=== PATIENT | male | born 1930 | race Caucasian/White ===

== ENCOUNTER 2017-10-24 11:50 | Inpatient (IN) | payer MEDICARE, MEDICAID ==
[2017-10-24] MEDS: Levofloxacin/Dextrose 5%-Water 100 ML IV SCH (14:54)
[2017-10-24] MEDS: Sodium Chloride 0.9% 1,000 ML IV SCH (14:54)
[2017-10-24] MEDS: Albuterol/Ipratropium 3.0-0.5 MG/3 ML Neb Soln NEB SCH ×3 (14:54→22:20)
[2017-10-24] MEDS ORDERED: Iopamidol 612 MG/ML 75 ML Bottle IV ONE (15:30)
[2017-10-24] MEDS ORDERED: Sodium Chloride 0.9% 50 ML IV SCH (16:45)
[2017-10-24] MEDS ORDERED: Acetaminophen 325 MG Tab PO PRN (18:08)
[2017-10-24] MEDS ORDERED: fentaNYL 25 MCG/HR Transdermal Patch TRDERM SCH (18:30)
[2017-10-24] MEDS: Carbidopa/Levodopa 25-250 MG Tab PO SCH (19:03)
[2017-10-25] MEDS: Albuterol/Ipratropium 3.0-0.5 MG/3 ML Neb Soln NEB SCH ×2 (05:37→12:38)
[2017-10-25] MEDS: Carbidopa/Levodopa 25-250 MG Tab PO SCH ×4 (05:54→19:36)
[2017-10-25 07:55] LABS: ANION GAP 7.2 mmol/L (5-15); CHLORIDE,CL 105 mmol/L (98-115); SODIUM,NA 141 mmol/L (136-145)
[2017-10-25] MEDS: Polyethylene Glycol 3350 Powder 17 GM Packet PO SCH ×2 (08:49→08:54)
[2017-10-25] MEDS: Aspirin 81 MG Tab.Chew PO SCH ×2 (08:49→08:54)
--- NOTE | 2017-10-25 12:08 | PCM.PN ---
- General Info Date of Service: 10/25/17 Subjective Update: Mr. Starkey is noncommunicative this morning, for which documentation shows is his baseline. Nursing reports no concerns. - Patient Data Vitals - Most Recent: Last Vital Signs Temp 37.2 C 10/25/17 06:57 Pulse 96 10/25/17 06:57 Resp 20 10/25/17 06:57 BP 106/64 10/25/17 06:57 Pulse Ox 94 L 10/25/17 06:57 Weight - Most Recent: 90.1 kg I&O - Last 24 Hours: Intake & Output 10/24/17 10/25/17 10/25/17 22:59 06:59 14:59 Intake Total 197 419 Balance 197 419 Lab Results Last 24 Hours: Laboratory Results - last 24 hr 10/24/17 10/25/17 10/25/17 Range/Units 20:05 07:15 07:15 WBC 12.3 H (5.0-10.0) 10^3/uL RBC 4.04 L (4.50-6.00) 10^6/uL Hgb 13.1 (13.0-17.0) g/dL Hct 38.8 L (40.0-52.0) % MCV 96.2 H D (82.0-92.0) fL MCH 32.3 H (27.0-31.0) pg MCHC 33.6 (32.0-36.0) g/dL RDW 13.7 (11.5-14.5) % Plt Count 120 L (150-300) 10^3/uL MPV 8.1 (7.4-10.4) fL Neut % (Auto) 83.6 H (50.0-70.0) % Lymph % (Auto) 6.3 L (20.0-40.0) % [place] % (Auto) 8.3 H (2.0-8.0) % Eos % (Auto) 1.6 (1.0-3.0) % Baso % (Auto) 0.2 (0.0-1.0) % Neut # (Auto) 10.3 H (2.5-7.0) 10^3/uL Lymph # (Auto) 0.8 L (1.0-4.0) 10^3/uL [place] # (Auto) 1.0 H (0.1-0.8) 10^3/uL Eos # (Auto) 0.2 (0.1-0.3) 10^3/uL Baso # (Auto) 0.0 (0.0-0.1) 10^3/uL Sodium 141 (136-145) mmol/L Potassium 4.0 (3.3-5.3) mmol/L Chloride 105 (98-115) mmol/L Carbon Dioxide 32.8 H (21.0-32.0) mmol/L Anion Gap 7.2 (5-15) mmol/L BUN 13 (6-25) mg/dL Creatinine 0.99 (0.51-1.17) mg/dL Est Cr Clr Drug Dosing 57.17 mL/min Estimated GFR (MDRD) > 60 mL/min Glucose 115 mg/dL Calcium 8.4 L (8.7-10.3) mg/dL Total Bilirubin 0.6 (0.2-1.0) mg/dL AST 17 (15-37) U/L ALT 16 (12-78) U/L Alkaline Phosphatase 64 (46-116) IU/L Total Protein 6.4 (6.4-8.2) g/dL Albumin 2.82 L (3.00-4.80) g/dL Specimen Type Urinvoid Urine Color Yellow (YELLOW) Urine Appearance Slightly cloudy H (CLEAR) Urine pH 5.0 (5.0-9.0) Ur Specific [place] 1.025 (1.005-1.030) Urine Protein Trace H (NEGATIVE) mg/dL Urine Glucose (UA) Negative (NEGATIVE) mg/dL Urine Ketones Trace H (NEGATIVE) mg/dL Urine Occult Blood Moderate H (NEGATIVE) Urine Nitrite Negative (NEGATIVE) Urine Bilirubin Negative (NEGATIVE) Urine Urobilinogen 0.2 (0.2-1.0) E.U./dL Ur Leukocyte Esterase Negative (NEGATIVE) Urine RBC >100 H /HPF Urine WBC 0-5 /HPF Ur Epithelial Cells Rare /LPF Urine Bacteria Few (NONE TO FEW) /HPF Johnson Results Last 24 Hours: Microbiology 10/24/17 20:05 Urine Culture - Preliminary Urine, Catheterized NO GROWTH AFTER 1 DAY Med Orders - Current: Current Medications Acetaminophen (Tylenol) 650 mg PO Q4H PRN PRN Reason: Pain Aspirin (Aspirin) 81 mg PO WITHBREAKFAST [facility] Last Admin: 10/25/17 08:54 Dose: Not Given Carbidopa/Levodopa (Sinemet 25-250 Mg) 1 tab PO QID@0530,11,16,19 [facility] Last Admin: 10/25/17 05:54 Dose: Not Given Fentanyl (Duragesic) 25 mcg TRDERM Q72H [facility] Last Admin: 10/24/17 19:03 Dose: 25 mcg Sodium Chloride (Normal Saline) 1,000 mls @ 50 mls/hr IV ASDIRECTED [facility] Last Admin: 10/24/17 14:54 Dose: 50 mls/hr Levofloxacin/Dextrose (Levaquin In D5w 500 Mg/100 Ml) 100 mls @ 100 mls/hr IV Q24H [facility] Last Admin: 10/24/17 14:54 Dose: 100 mls/hr Polyethylene Glycol (Miralax) 17 gm PO DAILY [facility] Last Admin: 10/25/17 08:54 Dose: Not Given Senna/Docusate Sodium (Senna Plus) 1 tab PO BID [facility] Last Admin: 10/25/17 08:53 Dose: Not Given Discontinued Medications Albuterol/Ipratropium (Duoneb 3.0-0.5 Mg/3 Ml) 3 ml NEB Q6HRRT [facility] Last Admin: 10/25/17 05:37 Dose: 3 ml Sodium Chloride (Normal Saline) 50 mls @ 50 mls/hr IV ASDIRECTED [facility] Stop: 10/24/17 19:00 Iopamidol (Isovue-300 (61%)) 75 ml IV ONETIME ONE Stop: 10/24/17 15:31 - Exam Physical Findings Comments:: GENERAL: Elderly white male lying in hospital bed in no acute distress. HEENT: Normocephalic, atraumatic. Conjunctiva clear. Nares patent without discharge. NECK: Supple, no masses. CV: Distant heart sounds, regular rate and rhythm, no murmurs, rubs, or gallops. 2+ radial and pedal pulses. PULMONARY: Normal effort, significantly diminished at bases, no wheezes, rales, or rhonchi. ABDOMEN: Positive bowel sounds, soft, nontender, nondistended. EXTREMITIES: No edema, cyanosis, or clubbing. MUSCULOSKELETAL: Moves all extremities well. NEUROLOGICAL: No obvious deficits. DERMATOLOGIC: No rashes or suspicious lesions in exposed areas. PSYCHIATRIC: Noncommunicative. - Problem List Review Problem List Initiated/Reviewed/Updated: Yes - My Orders Last 24 Hours: My Active Orders 10/24/17 18:08 Acetaminophen [Tylenol] 650 mg PO Q4H PRN 10/24/17 18:30 fentaNYL [Duragesic] 25 mcg TRDERM Q72H 10/24/17 19:00 Carbidopa/Levodopa [Sinemet 25-250 mg] 1 tab PO QID@0530,11,16,19 10/24/17 20:05 CULTURE URINE [RM] Routine URINALYSIS W/MICROSCOPIC [UA W/MICROSCOPIC] [URIN] Routine 10/24/17 21:00 Docusate Sodium/Sennosides [Senna Plus] 1 tab PO BID 10/25/17 08:00 Aspirin 81 mg PO WITHBREAKFAST 10/25/17 09:00 Polyethylene Glycol 3350 [MiraLAX] 17 gm PO DAILY 10/25/17 12:07 CRP [C-REACTIVE PROTEIN] [CHEM] Routine 10/26/17 05:11 BASIC METABOLIC PANEL,BMP [CHEM] AM CBC WITH AUTO DIFF [HEME] AM CRP [C-REACTIVE PROTEIN] [CHEM] AM - Plan Plan:: HPI summary: 87yoM with a history notable for Parkinson disease and baseline noncommunicative status who was noted to have fever of 101.6 and hypoxia with oxygen saturations into the 70s at [facility] who was seen at the [facility] and noted to have poor inspiratory ability and abdominal pain admitted for further work-up and management. Hospitalization problems: # Fever # Leukocytosis # Elevated CRP # Acute hypoxic respiratory failure, resolved # Pneumonia, bibasilar, possible # Abdominal pain, resolved # Thrombocytopenia, chronic: Plt 120. # Protein calorie malnutrition: Albumin 2.82. No fever since arrival. Leukocytosis improved from 14.5 to 12.3. CRP elevated at 6.7. Liberated from oxygen this morning. CT chest with several chronic findings and possibility of early bibasilar infiltrates. CT abdomen/pelvis without abnormality. UA with no growth x1 day. Blood culture no growth x1 day. Overall picture favors pneumonia as likely etiology of infectious picture. Will continue levofloxacin and close clinical monitoring. Chronic, stable conditions: # Parkinson disease: Continue Sinimet. # Constipation: Continue Miralax and Senna/docusate. # Chronic back pain: Continue fentanyl patch and Tyl. # Misc.: Continue ASA. Hospitalization details: # FEN: Continue NS @ 50cc/hr. Electrolytes normal; recheck tomorrow. Regular diet. # PPX: SCDs given thrombocytopenia. # Code status: DNR/DNI. # Disposition: Continue on inpatient status. Anticipate discharge back to SNF in 2-3 days pending clinical course.
[2017-10-25] MEDS: Sodium Chloride 0.9% 1,000 ML IV SCH (13:12)
[2017-10-25] MEDS: Levofloxacin/Dextrose 5%-Water 100 ML IV SCH (13:14)
[2017-10-26] MEDS: Carbidopa/Levodopa 25-250 MG Tab PO SCH ×6 (06:08→20:05)
[2017-10-26 07:56] LABS: ANION GAP 13.6 mmol/L (5-15); CHLORIDE,CL 106 mmol/L (98-115); SODIUM,NA 147 mmol/L (136-145)
[2017-10-26] MEDS: Aspirin 81 MG Tab.Chew PO SCH (08:37)
[2017-10-26] MEDS: Polyethylene Glycol 3350 Powder 17 GM Packet PO SCH (08:38)
--- NOTE | 2017-10-26 11:02 | PCM.PN ---
- General Info Date of Service: 10/26/17 Subjective Update: Mr. Starkey reports no concerns this morning. He is communicative with nodding and shaking head. States he has no pain or other complaints. Nursing reports that he has been more interactive. Drank coffee for breakfast. Occasional productive cough. - Patient Data Vitals - Most Recent: Last Vital Signs Temp 37.0 C 10/26/17 05:58 Pulse 72 10/26/17 05:58 Resp 16 10/26/17 05:58 BP 101/57 L 10/26/17 05:58 Pulse Ox 90 L 10/26/17 05:58 Weight - Most Recent: 90.1 kg I&O - Last 24 Hours: Intake & Output 10/25/17 10/26/17 10/26/17 22:59 06:59 14:59 Intake Total 824 370 Balance 824 370 Lab Results Last 24 Hours: Laboratory Results - last 24 hr 10/25/17 10/26/17 10/26/17 Range/Units 07:15 07:10 07:10 WBC 9.4 (5.0-10.0) 10^3/uL RBC 3.88 L (4.50-6.00) 10^6/uL Hgb 12.5 L (13.0-17.0) g/dL Hct 37.7 L (40.0-52.0) % MCV 97.1 H (82.0-92.0) fL MCH 32.3 H (27.0-31.0) pg MCHC 33.2 (32.0-36.0) g/dL RDW 13.7 (11.5-14.5) % Plt Count 111 L (150-300) 10^3/uL MPV 8.1 (7.4-10.4) fL Neut % (Auto) 75.5 H (50.0-70.0) % Lymph % (Auto) 10.7 L (20.0-40.0) % [place] % (Auto) 8.7 H (2.0-8.0) % Eos % (Auto) 4.8 H (1.0-3.0) % Baso % (Auto) 0.3 (0.0-1.0) % Neut # (Auto) 7.1 H (2.5-7.0) 10^3/uL Lymph # (Auto) 1.0 (1.0-4.0) 10^3/uL [place] # (Auto) 0.8 (0.1-0.8) 10^3/uL Eos # (Auto) 0.5 H (0.1-0.3) 10^3/uL Baso # (Auto) 0.0 (0.0-0.1) 10^3/uL Sodium 147 H (136-145) mmol/L Potassium 4.0 (3.3-5.3) mmol/L Chloride 106 (98-115) mmol/L Carbon Dioxide 31.4 (21.0-32.0) mmol/L Anion Gap 13.6 (5-15) mmol/L BUN 14 (6-25) mg/dL Creatinine 0.92 (0.51-1.17) mg/dL Est Cr Clr Drug Dosing 61.52 mL/min Estimated GFR (MDRD) > 60 mL/min Glucose 90 mg/dL Calcium 8.5 L (8.7-10.3) mg/dL C-Reactive Protein 6.7 H 10.7 H (0.0-0.9) mg/dL Johnson Results Last 24 Hours: Microbiology 10/24/17 20:05 Urine Culture - Final Urine, Catheterized NO GROWTH AFTER 2 DAYS Med Orders - Current: Current Medications Acetaminophen (Tylenol) 650 mg PO Q4H PRN PRN Reason: Pain Last Admin: 10/25/17 16:46 Dose: 650 mg Aspirin (Aspirin) 81 mg PO WITHBREAKFAST [facility] Last Admin: 10/26/17 08:37 Dose: 81 mg Carbidopa/Levodopa (Sinemet 25-250 Mg) 1 tab PO QID@0530,11,16,19 [facility] Last Admin: 10/26/17 06:08 Dose: Not Given Fentanyl (Duragesic) 25 mcg TRDERM Q72H [facility] Last Admin: 10/24/17 19:03 Dose: 25 mcg Levofloxacin/Dextrose (Levaquin In D5w 500 Mg/100 Ml) 100 mls @ 100 mls/hr IV Q24H [facility] Last Admin: 10/25/17 13:14 Dose: 100 mls/hr Polyethylene Glycol (Miralax) 17 gm PO DAILY [facility] Last Admin: 10/26/17 08:38 Dose: 17 gm Senna/Docusate Sodium (Senna Plus) 1 tab PO BID [facility] Last Admin: 10/26/17 08:37 Dose: 1 tab Discontinued Medications Albuterol/Ipratropium (Duoneb 3.0-0.5 Mg/3 Ml) 3 ml NEB Q6HRRT [facility] Last Admin: 10/25/17 12:38 Dose: Not Given Sodium Chloride (Normal Saline) 1,000 mls @ 50 mls/hr IV ASDIRECTED [facility] Last Admin: 10/25/17 13:12 Dose: 50 mls/hr Sodium Chloride (Normal Saline) 50 mls @ 50 mls/hr IV ASDIRECTED [facility] Stop: 10/24/17 19:00 Iopamidol (Isovue-300 (61%)) 75 ml IV ONETIME ONE Stop: 10/24/17 15:31 - Exam Physical Findings Comments:: GENERAL: Elderly white male lying in hospital bed in no acute distress. HEENT: Normocephalic, atraumatic. Conjunctiva clear. Nares patent without discharge. NECK: Supple, no masses. CV: Distant heart sounds, regular rate and rhythm, no murmurs, rubs, or gallops. 2+ radial and pedal pulses. PULMONARY: Normal effort, moderately diminished at bases but with interval improvement, no wheezes, rales, or rhonchi. ABDOMEN: Positive bowel sounds, soft, nontender, nondistended. EXTREMITIES: No edema, cyanosis, or clubbing. MUSCULOSKELETAL: Moves all extremities well. NEUROLOGICAL: No obvious deficits. DERMATOLOGIC: No rashes or suspicious lesions in exposed areas. PSYCHIATRIC: Not verbally communicative, but nodded and shook head appropriately. - Problem List Review Problem List Initiated/Reviewed/Updated: Yes - My Orders Last 24 Hours: My Active Orders 10/27/17 05:11 BASIC METABOLIC PANEL,BMP [CHEM] AM CBC WITH AUTO DIFF [HEME] AM CRP [C-REACTIVE PROTEIN] [CHEM] AM FOLATE [REF] Routine VITAMIN B12 [REF] Routine - Plan Plan:: HPI summary: 87yoM with a history notable for Parkinson disease and baseline limited communicative status who was noted to have fever of 101.6 and hypoxia with oxygen saturations into the 70s at [facility] who was seen at the [facility] and noted to have poor inspiratory ability and abdominal pain admitted for further work-up and management. Hospitalization problems: # Fever # Leukocytosis # Elevated CRP # Acute hypoxic respiratory failure, resolved: # Pneumonia, bibasilar, possible # Abdominal pain, resolved # Macrocytosis # Thrombocytopenia, chronic # Protein calorie malnutrition Hospital course: CT chest with several chronic findings and possibility of early bibasilar infiltrates. CT abdomen/pelvis without abnormality. No fever since arrival. Leukocytosis normalized, down from 14 at admission. Liberated from oxygen on . CRP elevated, likely as lagging indicator. UA with no growth x2 day. Blood culture no growth x2 day. Overall picture favors pneumonia as likely etiology of infectious picture. Macrocytosis noted on labs. Plan: - Discontinue IVF. - Continue levofloxacin IV today, with plan to transition to oral levofloxacin for 7 day course tomorrow if ongoing clinical improvement. - CBC, BMP, and CRP tomorrow. - B12 and folate tomorrow to assess further for cause of macrocytosis. Chronic, stable conditions: # Parkinson disease: Continue Sinimet. # Constipation: Continue Miralax and Senna/docusate. # Chronic back pain: Continue fentanyl patch and Tyl. # Misc.: Continue ASA. Hospitalization details: # FEN: D/C IVF. Electrolytes normal; recheck tomorrow. Regular diet. # PPX: SCDs given thrombocytopenia. # Code status: DNR/DNI. # Disposition: Continue on inpatient status. Anticipate discharge back to SNF as soon as tomorrow if ongoing clinical improvement.
[2017-10-26] MEDS: Levofloxacin/Dextrose 5%-Water 100 ML IV SCH (12:55)
[2017-10-27] MEDS: Carbidopa/Levodopa 25-250 MG Tab PO SCH ×2 (06:05→11:30)
[2017-10-27 06:55] VITALS: BP 119/69
[2017-10-27 07:50] LABS: ANION GAP 8.3 mmol/L (5-15); CHLORIDE,CL 104 mmol/L (98-115); SODIUM,NA 139 mmol/L (136-145)
[2017-10-27] MEDS: Aspirin 81 MG Tab.Chew PO SCH (08:00)
[2017-10-27] MEDS: Polyethylene Glycol 3350 Powder 17 GM Packet PO SCH (08:20)
--- NOTE | 2017-10-27 10:22 | PCM.DCSUM1 ---
Discharge Summary - Hospital Course Diagnosis: Stroke: No - Discharge Data Discharge Date: 10/27/17 Discharge Disposition: DC/Tfer to SNF 03 Condition: Good - Patient Instructions Activity: As Tolerated, Cough & Deep Breathe Showering/Bathing: May Shower Notify Provider of: Fever Other/Special Instructions: Report weakness, night sweats, shortness of breath - Discharge Plan *PRESCRIPTION DRUG MONITORING PROGRAM REVIEWED*: Not Applicable *COPY OF PRESCRIPTION DRUG MONITORING REPORT IN PATIENT CARLOS: Not Applicable Prescriptions/Med Rec: Acetaminophen [Tylenol] 650 mg PO Q6H #90 tablet fentaNYL [Duragesic] 12 mcg TD Q72H #10 patch Levofloxacin [Levaquin] 750 mg IV DAILY #7 sdv Home Medications: Home Meds Aspirin [Lucrecia Chewable Aspirin] 81 mg PO WITHBREAKFAST 03/14/14 [History] Polyethylene Glycol 3350 [MiraLAX] 17 gm PO DAILY 03/14/14 [History] Sennosides/Docusate Sodium [Senna-S Tablet] 1 tab PO BID 10/26/15 [History] Carbidopa/Levodopa [Carbidopa-Levodopa 25-250] 1 each PO QID@0530,11,16,19 10/24 [History] Menthol [Cough Drops] 1 ting MM QID PRN 10/24/17 [History] Polyethylene Glycol 3350 [Miralax] 17 gm PO Q72H PRN 10/24/17 [History] Triamcinolone Acetonide [Triamcinolone Acetonide 0.1% Crm] 1 applic TP DAILY PRN 10/24/17 [History] Vits A and D/White Pet/Lanolin [A and D Ointment] 113 gm TP BID 10/24/17 [ History] Acetaminophen [Tylenol] 650 mg PO Q6H #90 tablet 10/27/17 [Rx] Levofloxacin [Levaquin] 750 mg IV DAILY #7 sdv 10/27/17 [Rx] fentaNYL [Duragesic] 12 mcg TD Q72H #10 patch 10/27/17 [Rx] - Discharge Summary/Plan Comment DC Time >30 min.: Yes Discharge Summary/Plan Comment: Final diagnosis Pneumonia, present on admission, right lower lobe Macrocytosis, B12 and folate pending Brief history This 87yoM was admitted from a long-term care facility in which the staff noted the patient to have a fever of 101.6 with low oxygen saturations difficulty breathing. He had been seen and evaluated and admitted from outlying [facility]. Patient does not communicate very well however staff noted poor is auditory ability along with abdominal pain. Initial Hospitalization problems: Fever Leukocytosis Elevated CRP Acute hypoxic respiratory failure, resolved Pneumonia, thought to be etiology on day of admission Abdominal pain, resolved Thrombocytopenia, chronic: Plt 120. Protein calorie malnutrition: Albumin 2.82. Hospital course: Initial CT chest demonstrated several chronic findings and possibility of early bibasilar infiltrates however subsequent chest x-ray [facility] reported on October 27 right lower lobe pneumonia. CT abdomen/pelvis without abnormality. Patient had no fevers during his hospital stay and his abdominal pain resolved. He was administered IV Levaquin with improved leukocytosis. Patient was discontinued from oxygen on October 25. Inflammatory markers were trending down on discharge. Normal white count. Neutrophilia now normal. Electrolytes normal. UA with no growth Blood culture no growth. Disposition: Patient will be discharged back to SNF, by mouth Levaquin Provider to follow-up with vitamin B12 and folate labs - General Info Date of Service: 10/27/17 Subjective Update: She had noncommunicative - Review of Systems General: Denies: Fever - Patient Data Vitals - Most Recent: Last Vital Signs Temp 98.0 F 10/27/17 06:54 Pulse 67 10/27/17 06:54 Resp 16 10/27/17 06:54 BP 119/69 10/27/17 06:54 Pulse Ox 98 10/27/17 09:05 Weight - Most Recent: 198 lb 10.184 oz I&O - Last 24 hours: Intake & Output 10/26/17 10/27/17 10/27/17 22:59 06:59 14:59 Intake Total 50 0 Balance 50 0 Lab Results - Last 24 hrs: Laboratory Results - last 24 hr 10/27/17 10/27/17 Range/Units 07:15 07:15 WBC 8.7 (5.0-10.0) 10^3/uL RBC 4.20 L (4.50-6.00) 10^6/uL Hgb 13.2 (13.0-17.0) g/dL Hct 40.5 (40.0-52.0) % MCV 96.3 H (82.0-92.0) fL MCH 31.5 H (27.0-31.0) pg MCHC 32.7 (32.0-36.0) g/dL RDW 13.6 (11.5-14.5) % Plt Count 140 L (150-300) 10^3/uL MPV 8.2 (7.4-10.4) fL Neut % (Auto) 69.0 (50.0-70.0) % Lymph % (Auto) 13.2 L (20.0-40.0) % [place] % (Auto) 8.4 H (2.0-8.0) % Eos % (Auto) 9.1 H (1.0-3.0) % Baso % (Auto) 0.3 (0.0-1.0) % Neut # (Auto) 6.1 (2.5-7.0) 10^3/uL Lymph # (Auto) 1.1 (1.0-4.0) 10^3/uL [place] # (Auto) 0.7 (0.1-0.8) 10^3/uL Eos # (Auto) 0.8 H (0.1-0.3) 10^3/uL Baso # (Auto) 0.0 (0.0-0.1) 10^3/uL Sodium 139 (136-145) mmol/L Potassium 3.7 (3.3-5.3) mmol/L Chloride 104 (98-115) mmol/L Carbon Dioxide 30.4 (21.0-32.0) mmol/L Anion Gap 8.3 (5-15) mmol/L BUN 12 (6-25) mg/dL Creatinine 0.79 (0.51-1.17) mg/dL Est Cr Clr Drug Dosing 71.64 mL/min Estimated GFR (MDRD) > 60 mL/min Glucose 84 mg/dL Calcium 8.7 (8.7-10.3) mg/dL C-Reactive Protein 6.5 H (0.0-0.9) mg/dL CHERYL Results - Last 24 hrs: Microbiology 10/24/17 20:05 Urine Culture - Final Urine, Catheterized NO GROWTH AFTER 2 DAYS Med Orders - Current: Current Medications Acetaminophen (Tylenol) 650 mg PO Q4H PRN PRN Reason: Pain Last Admin: 10/25/17 16:46 Dose: 650 mg Aspirin (Aspirin) 81 mg PO WITHBREAKFAST [facility] Last Admin: 10/27/17 08:00 Dose: 81 mg Carbidopa/Levodopa (Sinemet 25-250 Mg) 1 tab PO QID@0530,11,16,19 [facility] Last Admin: 10/27/17 06:05 Dose: Not Given Fentanyl (Duragesic) 25 mcg TRDERM Q72H [facility] Last Admin: 10/24/17 19:03 Dose: 25 mcg Levofloxacin/Dextrose (Levaquin In D5w 500 Mg/100 Ml) 100 mls @ 100 mls/hr IV Q24H [facility] Last Admin: 10/26/17 12:55 Dose: 100 mls/hr Polyethylene Glycol (Miralax) 17 gm PO DAILY [facility] Last Admin: 10/27/17 08:20 Dose: 17 gm Senna/Docusate Sodium (Senna Plus) 1 tab PO BID [facility] Last Admin: 10/27/17 09:33 Dose: Not Given Discontinued Medications Albuterol/Ipratropium (Duoneb 3.0-0.5 Mg/3 Ml) 3 ml NEB Q6HRRT [facility] Last Admin: 10/25/17 12:38 Dose: Not Given Sodium Chloride (Normal Saline) 1,000 mls @ 50 mls/hr IV ASDIRECTED [facility] Last Admin: 10/25/17 13:12 Dose: 50 mls/hr Sodium Chloride (Normal Saline) 50 mls @ 50 mls/hr IV ASDIRECTED [facility] Stop: 10/24/17 19:00 Iopamidol (Isovue-300 (61%)) 75 ml IV ONETIME ONE Stop: 10/24/17 15:31 Last Admin: 10/27/17 00:38 Dose: Not Given - Exam Quality Assessment: Denies: Supplemental Oxygen General: Reports: Alert, Cooperative. Denies: Oriented Neck: Reports: Supple Lungs: Reports: Decreased Breath Sounds (Diminished breath sounds right lower lobe with mild crackles), Other Cardiovascular: Reports: Regular Rate, Regular Rhythm GI/Abdominal Exam: Normal Bowel Sounds, Soft, Non-Tender (Male) Exam: No Hernia Back Exam: Denies: CVA Tenderness (L), CVA Tenderness (R) Psy/Mental Status: Reports: Alert, Labile Mood
== END 2017-10-27 11:41 | DRG 193 ==
LOC: KA.MS 11:50
PROVIDERS: ADMIT Physician Assistant; ATTEND Family Medicine
DX: J18.9 Pneumonia, unspecified organism (principal); J96.01 Acute respiratory failure with hypoxia; E46 Unspecified protein-calorie malnutrition; D75.89 Other specified diseases of blood and blood-forming organs; R50.9 Fever, unspecified; D72.829 Elevated white blood cell count, unspecified; R79.82 Elevated C-reactive protein (CRP); R10.9 Unspecified abdominal pain; D69.6 Thrombocytopenia, unspecified; G20 Parkinson's disease; K59.00 Constipation, unspecified; M54.9 Dorsalgia, unspecified; G89.29 Other chronic pain; G31.84 Mild cognitive impairment of uncertain or unknown etiology; R47.9 Unspecified speech disturbances; Z79.899 Other long term (current) drug therapy
CPT/HCPCS: 36415; 51798; 71250; 74177; 80048; 80053; 81001; 82607; 82746; 85025; 86140; 87070; 87086; 87205; 94640; A9270-GY; J1956; J7030